=== PATIENT | female | born 1950 ===

== ENCOUNTER 2021-08-04 20:14 | Inpatient (IN) ==
[2021-08-04 21:08] LABS: ABS Basophils 0.1 10^3/ul (0-0.2); ABS Eosinophils 0.1 10^3/ul (0-0.6); ABS Lymphocytes 1.3 10^3/ul (1.0-4.8); ABS Monocytes 0.5 10^3/ul (0-0.8); ABS Neutrophils 5.4 10^3/ul (1.5-7.7); Eosinophil % 1.2 %; Hematocrit 29 % (35-47); Hemoglobin 9.6 g/dL (12.0-16.0); Lymphocyte % 18.1 %; Mean Corpuscular HGB Conc 33 g/dL (31-36); Mean Corpuscular Hemoglobin 32 pg (27-31); Mean Corpuscular Volume 95 fL (80-97); Mean Platelet Volume 8.6 fL (7.4-10.4); Platelet Count 199 10^3/uL (150-450); Red Blood Count 3.03 10^6 /uL (3.70-4.87); Red Cell Distribution Width 17 % (10-15); White Blood Count 7.4 10^3/uL (3.5-10.8)
[2021-08-04 21:37] LABS: ALT 16 U/L (7-52); AST 25 U/L (13-39); Albumin 3.3 g/dL (3.2-5.2); Albumin/Globulin Ratio 1.3 (1-3); Alkaline Phosphatase 93 U/L (35-149); Anion Gap 8 mmol/L (2-11); Blood Urea Nitrogen 17 mg/dL (6-24); C Reactive Protein 6.65 mg/L (<8.01); CO2 Carbon Dioxide 24 mmol/L (22-32); Calcium 8.7 mg/dL (8.6-10.3); Chloride 109 mmol/L (101-111); Creatine Kinase 44 U/L (10-223); Globulin 2.5 g/dL (2-4); Glucose 116 mg/dL (70-100); Potassium 3.6 mmol/L (3.5-5.0); Sodium 141 mmol/L (135-145); Total Protein 5.8 g/dL (6.4-8.9); eGFR CKD-EPI 57.8 (>60)
[2021-08-04 21:53] LABS: Troponin I 0.04 ng/mL (<0.03)
[2021-08-04] MEDS ORDERED: cefTRIAXone 1 gm/50 mL NS BAG 1 GM/50 ML BAG IV ONE (21:54)
[2021-08-04] MEDS ORDERED: Furosemide 40 mg/4 ml IV VIAL IV SLOW PU ONE (21:58)
[2021-08-04 23:50] LABS: Urine Appearance Clear; Urine Bilirubin Negative (Negative); Urine Blood Negative (Negative); Urine Color Straw; Urine Glucose Negative (Negative); Urine Ketones Negative (Negative); Urine Nitrite Negative (Negative); Urine Protein Negative (Negative); Urine Specific Gravity 1.006 (1.002-1.030); Urine Urobilinogen Negative (Negative)
[2021-08-05 00:02] LABS: Magnesium 1.8 mg/dL (1.9-2.7)
[2021-08-05 00:16] LABS: TSH Ultra Thyroid Stim Horm 3.52 mcIU/mL (0.34-5.60)
[2021-08-05 00:20] LABS: Urine Bacteria Absent (Absent); Urine Red Blood Cell Trace(0-2/hpf) (Absent); Urine Squamous Epithelial Cell Present (Absent); Urine White Blood Cell Trace(0-5/hpf) (Absent)
[2021-08-05] MEDS ORDERED: Magnesium Sulfate 2 gm BAG 2 GM/50 ML BAG IVPB ONE (00:54)
[2021-08-05 05:45] LABS: ABS Basophils 0.1 10^3/ul (0-0.2); ABS Eosinophils 0.1 10^3/ul (0-0.6); ABS Lymphocytes 1.4 10^3/ul (1.0-4.8); ABS Monocytes 0.6 10^3/ul (0-0.8); ABS Neutrophils 3.7 10^3/ul (1.5-7.7); Eosinophil % 1.9 %; Hematocrit 31 % (35-47); Hemoglobin 10.5 g/dL (12.0-16.0); Lymphocyte % 23.4 %; Mean Corpuscular HGB Conc 34 g/dL (31-36); Mean Corpuscular Hemoglobin 32 pg (27-31); Mean Corpuscular Volume 93 fL (80-97); Mean Platelet Volume 8.2 fL (7.4-10.4); Platelet Count 223 10^3/uL (150-450); Red Blood Count 3.29 10^6 /uL (3.70-4.87); Red Cell Distribution Width 17 % (10-15); White Blood Count 5.8 10^3/uL (3.5-10.8)
[2021-08-05 06:00] LABS: Anion Gap 7 mmol/L (2-11); Blood Urea Nitrogen 13 mg/dL (6-24); CO2 Carbon Dioxide 30 mmol/L (22-32); Calcium 9.1 mg/dL (8.6-10.3); Chloride 107 mmol/L (101-111); Glucose 91 mg/dL (70-100); Magnesium 2.2 mg/dL (1.9-2.7); Potassium 3.3 mmol/L (3.5-5.0); Sodium 144 mmol/L (135-145); eGFR CKD-EPI 60.6 (>60)
[2021-08-05] MEDS ORDERED: Potassium Chlor 20 meq TAB.ER PO ONE (06:00)
[2021-08-05 06:44] LABS: Troponin I 0.05 ng/mL (<0.03)
[2021-08-05] MEDS ORDERED: Furosemide 40 mg/4 ml IV VIAL IV ONE (08:00)
[2021-08-05 08:49] LABS: Troponin I 0.05 ng/mL (<0.03)
[2021-08-05] MEDS: Cholecalciferol (VIT D3) 400 units TAB PO SCH (09:18)
[2021-08-05] MEDS: ALENDRONATE 10 MG PO SCH (09:19)
[2021-08-05 11:27] LABS: Troponin I 0.05 ng/mL (<0.03)
[2021-08-05] MEDS: KCL 20 MEQ/100 ML IVPREMIX 20 MEQ/100 ML BAG IV SCH ×3 (13:09→19:41)
[2021-08-05 14:35] LABS: Troponin I 0.05 ng/mL (<0.03)
[2021-08-06 06:09] LABS: ABS Eosinophils 0.1 10^3/ul (0-0.6); ABS Lymphocytes 1.6 10^3/ul (1.0-4.8); ABS Monocytes 0.5 10^3/ul (0-0.8); ABS Neutrophils 3.2 10^3/ul (1.5-7.7); Eosinophil % 2.5 %; Hematocrit 31 % (35-47); Hemoglobin 10.7 g/dL (12.0-16.0); Lymphocyte % 28.7 %; Mean Corpuscular HGB Conc 35 g/dL (31-36); Mean Corpuscular Hemoglobin 32 pg (27-31); Mean Corpuscular Volume 92 fL (80-97); Mean Platelet Volume 8.1 fL (7.4-10.4); Nucleated Red Blood Cells % 0.1; Platelet Count 224 10^3/uL (150-450); Red Blood Count 3.34 10^6 /uL (3.70-4.87); Red Cell Distribution Width 17 % (10-15); White Blood Count 5.5 10^3/uL (3.5-10.8)
[2021-08-06 06:30] LABS: Calcium 8.8 mg/dL (8.6-10.3); Magnesium 1.9 mg/dL (1.9-2.7); Potassium 4.2 mmol/L (3.5-5.0); eGFR CKD-EPI 63.7 (>60)
[2021-08-06] MEDS ORDERED: Furosemide 40 mg/4 ml IV VIAL IV ONE (09:00)
[2021-08-06] MEDS: Cholecalciferol (VIT D3) 400 units TAB PO SCH (10:35)
[2021-08-06] MEDS: ALENDRONATE 10 MG PO SCH (10:37)
[2021-08-07 06:30] LABS: ABS Basophils 0.1 10^3/ul (0-0.2); ABS Eosinophils 0.2 10^3/ul (0-0.6); ABS Lymphocytes 1.8 10^3/ul (1.0-4.8); ABS Monocytes 0.5 10^3/ul (0-0.8); ABS Neutrophils 2.8 10^3/ul (1.5-7.7); Eosinophil % 3.4 %; Hematocrit 30 % (35-47); Hemoglobin 10.2 g/dL (12.0-16.0); Lymphocyte % 33.4 %; Mean Corpuscular HGB Conc 34 g/dL (31-36); Mean Corpuscular Hemoglobin 32 pg (27-31); Mean Corpuscular Volume 93 fL (80-97); Mean Platelet Volume 8.4 fL (7.4-10.4); Platelet Count 216 10^3/uL (150-450); Red Blood Count 3.22 10^6 /uL (3.70-4.87); Red Cell Distribution Width 16 % (10-15); White Blood Count 5.3 10^3/uL (3.5-10.8)
[2021-08-07 06:50] LABS: Anion Gap 5 mmol/L (2-11); Blood Urea Nitrogen 15 mg/dL (6-24); CO2 Carbon Dioxide 32 mmol/L (22-32); Calcium 8.8 mg/dL (8.6-10.3); Chloride 104 mmol/L (101-111); Glucose 88 mg/dL (70-100); Magnesium 1.8 mg/dL (1.9-2.7); Potassium 3.6 mmol/L (3.5-5.0); Sodium 141 mmol/L (135-145); eGFR CKD-EPI 58.5 (>60)
[2021-08-07] MEDS: Cholecalciferol (VIT D3) 400 units TAB PO SCH (08:41)
[2021-08-07] MEDS: ALENDRONATE 10 MG PO SCH (08:43)
[2021-08-07] MEDS ORDERED: Magnesium Sulfate 2 gm BAG 2 GM/50 ML BAG IVPB ONE (09:26)
[2021-08-07 10:26] LABS: % Iron Saturation 19 % (15-55); Iron 44 ug/dL (50-212); Total Iron Binding Capacity 232 mcg/dL (250-450); Transferrin 166 mg/dL (203-362); Unsaturated Iron Binding < 217 ug/dL
[2021-08-08 06:36] LABS: ABS Basophils 0.1 10^3/ul (0-0.2); ABS Eosinophils 0.2 10^3/ul (0-0.6); ABS Lymphocytes 1.8 10^3/ul (1.0-4.8); ABS Monocytes 0.5 10^3/ul (0-0.8); ABS Neutrophils 3.1 10^3/ul (1.5-7.7); Hematocrit 31 % (35-47); Hemoglobin 10.6 g/dL (12.0-16.0); Lymphocyte % 31.9 %; Mean Corpuscular HGB Conc 35 g/dL (31-36); Mean Corpuscular Hemoglobin 32 pg (27-31); Mean Corpuscular Volume 94 fL (80-97); Mean Platelet Volume 8.2 fL (7.4-10.4); Platelet Count 228 10^3/uL (150-450); Red Blood Count 3.28 10^6 /uL (3.70-4.87); Red Cell Distribution Width 16 % (10-15); White Blood Count 5.6 10^3/uL (3.5-10.8)
[2021-08-08 07:02] LABS: Magnesium 2.1 mg/dL (1.9-2.7); eGFR CKD-EPI 57.1 (>60)
[2021-08-08] MEDS: Cholecalciferol (VIT D3) 400 units TAB PO SCH (08:16)
[2021-08-08] MEDS: ALENDRONATE 10 MG PO SCH (08:17)
[2021-08-08 12:30] VITALS: BP 95/57
== END 2021-08-08 14:15 | DRG 291 ==
LOC: ED 20:14 → INTOOBSV 23:40 → SUATTDRO 23:40 → MEDTELE 23:40
PROVIDERS: ADMIT Internal Medicine; ATTEND Hospitalist